=== PATIENT | female | born 1960 | race Caucasian/White ===

== ENCOUNTER → 2024-07-17 08:37 | Outpatient (REF) | payer OTHER, SELFPAY | LOC: RAD 08:37 | PROVIDERS: ATTENDING PHYSICIAN Urology; FAMILY PHYSICIAN Family Medicine | DX: N20.0 Calculus of kidney (principal) | CPT/HCPCS: 76775 ==

== ENCOUNTER → 2024-07-18 11:38 | Outpatient (REF) | payer OTHER, SELFPAY | LOC: WDC 11:38 | PROVIDERS: ATTENDING PHYSICIAN Obstetrics & Gynecology; FAMILY PHYSICIAN Family Medicine | DX: Z12.31 Encounter for screening mammogram for malignant neoplasm of breast (principal) | CPT/HCPCS: 77063; 77067 ==

== ENCOUNTER → 2024-10-10 09:44 | Outpatient (REF) | payer OTHER, MEDICARE, SELFPAY | LOC: RAD 09:44 | PROVIDERS: ATTENDING PHYSICIAN Internal Medicine Cardiovascular Disease | DX: E78.00 Pure hypercholesterolemia, unspecified (principal); R73.01 Impaired fasting glucose | CPT/HCPCS: 75571 ==

== ENCOUNTER → 2025-07-04 11:16 | Outpatient (REF) | payer OTHER, SELFPAY | LOC: RAD 11:16 | PROVIDERS: ATTENDING PHYSICIAN Urology; FAMILY PHYSICIAN Family Medicine | DX: N20.0 Calculus of kidney (principal) | CPT/HCPCS: 76775 ==

== ENCOUNTER → 2025-07-22 11:26 | Outpatient (REF) | payer OTHER, SELFPAY | LOC: WDC 11:26 | PROVIDERS: ATTENDING PHYSICIAN Obstetrics & Gynecology; FAMILY PHYSICIAN Family Medicine | DX: Z12.31 Encounter for screening mammogram for malignant neoplasm of breast (principal) | CPT/HCPCS: 77063; 77067 ==

== ENCOUNTER → 2025-07-23 12:08 | Outpatient (REF) | payer OTHER, SELFPAY | LOC: RAD 12:08 | PROVIDERS: ATTENDING PHYSICIAN Obstetrics & Gynecology; FAMILY PHYSICIAN Family Medicine | DX: Z13.820 Encounter for screening for osteoporosis (principal) | CPT/HCPCS: 77080 ==